=== PATIENT | male | born 1975 | race Caucasian/White ===

== ENCOUNTER 2025-05-23 07:12 | Emergency (ER) | payer SELFPAY ==
[~2025-05-23] VITALS: Ht 167.6 cm; Wt 79.5 kg
[~2025-05-23 07:12] MED LIST: NOCURR
[2025-05-23 07:19] VITALS: BP 136/82; PULSE 94; RESP 18; TEMP 98.2; O2SAT 100
[2025-05-23 07:41] LABS: GLUCOMETER DEV NAME(LOC) ERT.7; GLUCOSE,POINT OF CARE 266 MG/DL (70-110)
[2025-05-23] MEDS ORDERED: AMOX-457 PO (07:42)
[2025-05-23] MEDS: LORATADINE 10 MG TABLET PO ONE (07:46)
[2025-05-23] MEDS: AMOX TR/POT CLAV 875 MG/125 MG TABLET PO ONE (07:47)
== END 2025-05-23 07:48 | disposition home or self-care (01) ==
LOC: EMS 07:12
DX: K04.7 Periapical abscess without sinus (principal); E11.9 Type 2 diabetes mellitus without complications; Z98.890 Other specified postprocedural states; Z98.2 Presence of cerebrospinal fluid drainage device
CPT/HCPCS: 82962; 99283